=== PATIENT | male | born 1955 | race Caucasian/White ===

== ENCOUNTER 2017-04-09 17:15 | Emergency (ER) | payer MEDICAID ==
[~2017-04-09] VITALS: Ht 154.9 cm; Wt 94.5 kg
[2017-04-09 17:22] VITALS: Ht 154.9 cm; Wt 94.5 kg
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
--- NOTE | 2017-04-09 18:57 | RADRPT ---
PROCEDURE: Chest x-ray CLINICAL INDICATION: Fall with chest pain TECHNIQUE: Chest single view COMPARISON: None FINDINGS: The heart is normal in size. The pulmonary vessels are normal in caliber. The lungs are clear. Th e costophrenic angles are sharp. The visualized bony thorax is unremarkable. IMPRESSION: No acute cardiopulmonary disease. No evidence of pneumothorax RPTAT: HH .Denis Goff MD, Date Time Electronically viewed and signed by .Denis Goff MD, MD on 04/09/2017 18:56 .W/
--- NOTE | 2017-04-09 19:00 | RADRPT ---
PROCEDURE: XR Left Shoulder. CLINICAL INDICATION: Fall, left shoulder pain TECHNIQUE: 3 views of the left shoulder are available for review. COMPARISON: None available FINDINGS: There is a small age indeterminate possible acute fracture fragment near the greater tuberosity, mil dly displaced. There is also suggestion of a Hill-Sachs fracture of the posterior humeral head and inferior sagging of the humeral head with respect to the glenoid. No definite bony Bankart is seen on the provided v iews. 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 Visualized left lung is clear. IMPRESSION: 1. Age indeterminate possibly acute Hill-Sachs fracture of the humeral head with a small adjacent diana ne fragment near the greater tuberosity. Recommend CT for further evaluation. Query previous anterio r glenohumeral dislocation event. 2. Inferior sagging of the humeral head that may the due to joint effusion, capsular laxity, and / o r muscle atony. RPTAT: UU .Pal Wu MD, MD Date Time Electronically viewed and signed by .Pal Wu MD, MD on 04/09/2017 19:00 .K/
--- NOTE | 2017-04-09 19:01 | RADRPT ---
PROCEDURE: XR right clavicle CLINICAL INDICATION: Trauma, evaluate for fracture TECHNIQUE: Two views of the left clavicle are available for review. COMPARISON: Radiographs of the left shoulder same day FINDINGS: There is a small age indeterminate possible acute fracture fragment near the greater tuberosity, mil dly displaced. There is also suggestion of a Hill-Sachs fracture of the posterior humeral head and inferior sagging of the humeral head with respect to the glenoid. No definite bony Bankart is seen on the provided v iews. 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 Visualized left lung is clear. IMPRESSION: 1. Age indeterminate possibly acute Hill-Sachs fracture of the humeral head with a small adjacent diana ne fragment near the greater tuberosity. Recommend CT for further evaluation. Query previous anterio r glenohumeral dislocation event. 2. Inferior sagging of the humeral head that may the due to joint effusion, capsular laxity, and / o r muscle atony. RPTAT: UU .Pal Wu MD, MD Date Time Electronically viewed and signed by .Pal Wu MD, on 04/09/2017 19:00 .K/
[2017-04-09] MEDS ORDERED: IBUP-1542 PO (19:32)
[2017-04-09] MEDS ORDERED: TRAM50TA2 PO (19:32)
== END 2017-04-09 20:01 | disposition home or self-care (01) ==
LOC: FTE 17:15
DX: S49.92XA Unspecified injury of left shoulder and upper arm, initial encounter (principal); R07.9 Chest pain, unspecified; V18.4XXA Pedal cycle driver injured in noncollision transport accident in traffic accident, initial encounter
CPT/HCPCS: 71010; 73000; 73030; Z7502